=== PATIENT | female | born 1955 | race Caucasian/White ===

== ENCOUNTER 2018-07-27 15:19 | Emergency (ER) | payer OTHER ==
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
[2018-07-27] MEDS: TETRACAIN/EPI/LIDO GEL 3ML SYR TP ONE (16:44)
[2018-07-27] MEDS: KETOROLAC 15 MG/ML VIAL IVP ONE (16:45)
[2018-07-27] MEDS: IBUPROFEN 600 MG TAB TH PO ONE (17:50)
[2018-07-27 18:24] VITALS: BP 121/80
[2018-07-27] MEDS: METHOCARBAMOL 500 MG TAB PO ONE (18:27)
== END 2018-07-27 18:30 | disposition home or self-care (01) ==
LOC: ER 15:32
DX: S01.01XA Laceration without foreign body of scalp, initial encounter (principal); S70.12XA Contusion of left thigh, initial encounter; V49.40XA Driver injured in collision with unspecified motor vehicles in traffic accident, initial encounter
CPT/HCPCS: 12001; 70450; 72125; 96374; 99284; J1885

== ENCOUNTER → 2018-07-27 | Outpatient (CLI) | payer OTHER | LOC: AMB 14:44 | PROVIDERS: ATTEND Nurse Practitioner | DX: R41.82 Altered mental status, unspecified (principal); S00.03XA Contusion of scalp, initial encounter; S00.12XA Contusion of left eyelid and periocular area, initial encounter; S01.01XA Laceration without foreign body of scalp, initial encounter; I10 Essential (primary) hypertension; R51 Headache; V43.52XA Car driver injured in collision with other type car in traffic accident, initial encounter; Y92.411 Interstate highway as the place of occurrence of the external cause | CPT/HCPCS: A0425; A0427 ==